=== PATIENT | male | born 1990 ===

== ENCOUNTER 2018-02-25 06:24 | Emergency (ER) | payer SELFPAY ==
[2018-02-25] MEDS ORDERED: HYDROcodone/Acetaminophen 10/325 mg Tablet ONE (07:39)
[2018-02-25] MEDS ORDERED: Ibuprofen 800 MG TAB ONE (07:39)
--- NOTE | 2018-02-25 10:52 | RAD ---
RIGHT ANKLE 3 VIEWS: DATE: 02/25/18. FINDINGS: No fracture was seen. The ankle joint appears intact and the articular surfaces are smooth. IMPRESSION: No acute findings. POS: HOME
--- NOTE | 2018-02-25 10:54 | RAD ---
RIGHT FOOT 3 VIEWS: DATE: 02/25/18. FINDINGS: No acute fracture was seen. A small bony irregularity on the dorsum of the navicular at the tail of the navicular joint is probably from old trauma. No periosteal reaction was seen. IMPRESSION: No acute traumatic findings. POS: HOME
== END 2018-02-25 08:04 | disposition home or self-care (01) ==
LOC: BURERS 06:24
DX: S93.401A Sprain of unspecified ligament of right ankle, initial encounter (principal); V28.0XXA Motorcycle driver injured in noncollision transport accident in nontraffic accident, initial encounter; Y93.55 Activity, bike riding
CPT/HCPCS: 29515